=== PATIENT | female | born 1950 ===

== ENCOUNTER 2018-12-12 14:51 | Inpatient (IN) | payer MEDICARE ==
[~2018-12-12 14:51] MED LIST: ISOVUE-370 76%-LOCM 1 ML ONE
[2018-12-12 15:26] LABS: #Basophils 0.1 thou/uL (0.0-0.2); #Lymphocytes 1.5 thou/uL (1.20-3.40); #Monocytes 0.8 thou/uL (0.11-0.59); %Basophils 0.5 % (0.0-1.0); %Eosinophils 0.3 % (0.0-10.0); %Lymphocytes 14.7 % (21.0-51.0); %Monocytes 7.9 % (0.0-10.0); %Neutrophils 76.6 % (42.0-75.0); Hemoglobin 12.2 g/dL (12.0-16.0); Mean Corpuscular HGB CONC 32.3 g/dL (32.0-36.0); Mean Corpuscular Hemoglobin 26.5 pg (27.0-31.0); Mean Platelet Volume 7.6 fL (7.4-10.4); Platelet Count 388 thou/uL (130-400); RBC Distribution Width 14.1 % (11.5-14.5); Red Blood Cell (RBC) Count 4.58 mill/uL (4.20-5.40); White Blood Cell (WBC) Count 10.5 thou/uL (4.8-10.8)
[2018-12-12] MEDS ORDERED: hydrALAZINE 20 MG/ML VIAL ONE ×2 (15:27→17:48)
[2018-12-12 15:45] LABS: ALT (SGPT) 7 U/L (8-55); AST (SGOT) 12 U/L (5-34); Albumin 4.2 g/dL (3.4-4.8); Alkaline Phosphatase 83 U/L (40-150); Anion Gap 18 mmol/L (10-20); BUN (Urea Nitrogen) 17 mg/dL (9.8-20.1); Bilirubin, Total 0.3 mg/dL (0.2-1.2); Calc. Creatinine Clearance 0 mL/min (70-130); Carbon Dioxide 25 mmol/L (23-31); Chloride 97 mmol/L (98-107); Estimated GFR-MDRD 69; Globulin 2.9 g/dL (2.4-3.5); Glucose 106 mg/dL (80-115); Potassium 3.7 mmol/L (3.5-5.1); Protein, Total 7.1 g/dL (6.0-8.3); Sodium 136 mmol/L (136-145)
[2018-12-12] MEDS ORDERED: Lorazepam 2 MG/ML VIAL ONE ×2 (15:53→17:18)
[2018-12-12] MEDS ORDERED: Methocarbamol 1 GM in Sodium Chloride 0.9% 100 ML IVPB SCH (16:00)
[2018-12-12] MEDS ORDERED: diphenhydrAMINE 50 MG/ML VIAL ONE (16:42)
[2018-12-12] MEDS ORDERED: Famotidine/PF 20 mg/2ml Vial ONE (16:42)
[2018-12-12] MEDS ORDERED: Metoclopramide HCl 10 MG/2 ML VIAL ONE (16:42)
[2018-12-12] MEDS ORDERED: methylPREDNISolone Sod Succ/PF 125 MG/2 ML VIAL ONE (16:42)
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
[2018-12-12] MEDS ORDERED: Ketorolac Tromethamine 30 MG/ML VIAL ONE (18:22)
[2018-12-12 20:30] LABS: Troponin I 0.037 ng/mL (< 0.028)
[2018-12-12] MEDS ORDERED: Acetaminophen 325 MG TAB ONE (20:55)
[2018-12-12] MEDS ORDERED: Acetaminophen 650 MG Suppository PR PRN (22:23)
[2018-12-12] MEDS ORDERED: Ondansetron PF 4 MG/2 ML Vial IVP PRN (22:23)
[2018-12-12] MEDS ORDERED: Ondansetron ODT 4 MG TAB PO PRN (22:23)
[2018-12-12] MEDS ORDERED: hydrALAZINE 20 MG/ML VIAL SLOW IVP PRN (22:25)
--- NOTE | 2018-12-12 23:08 | HP ---
PRIMARY CARE DOCTOR: None reported. CODE STATUS: Full code. TIME OF EVALUATION: 10:30 p.m. CHIEF COMPLAINT: High blood pressure. HISTORY OF PRESENT ILLNESS: This is a 68-year-old female patient with past medical history of hypertension. The patient came to the hospital after having very high blood pressure with no clear triggers, no alleviating factors. She only reported that she has a lot of anxiety at home and the patient also had been taking off her blood pressure medications quite some time ago because her blood pressure had been controlled. Symptoms were severe, associated with chest pain that was 10/10, in the middle of the chest. The chest pain improved after the patient's blood pressure was controlled. REVIEW OF SYSTEMS: All other systems were reviewed and negative except for the findings mentioned above. PAST MEDICAL HISTORY: Positive for leaky mitral valve, diabetes type 2, hyperlipidemia, hypertension. PAST SURGICAL HISTORY: Left knee surgery. PSYCHIATRIC HISTORY: Depression. SOCIAL HISTORY: No alcohol, no drugs, no smoking history. KNOWN ALLERGIES: To iodine. FAMILY HISTORY:Reviewed and non contributory to current presentation. REPORTED MEDICATIONS: Tylenol. PHYSICAL EXAMINATION: VITAL SIGNS: On presentation, blood pressure 213/96, heart rate 73, respiratory rate was 20, temperature 98.1, pain 10/10, oxygen saturation was 97% on room air. GENERAL APPEARANCE: The patient is alert, oriented, no acute distress. HEENT: Eyes, normal conjunctivae. Moist oral mucosa. Anicteric. No JVD. RESPIRATORY: Bilateral air entry. Breath sounds are normal. CARDIOVASCULAR: Normal rate, regular rhythm. No murmurs. No gallop. No edema. ABDOMEN: Soft, normal bowel sounds. MUSCULOSKELETAL: Baseline range of motion and strength. SKIN: Warm, intact. No pallor. No rash. No redness. Capillary refill seems to be intact. NEURO: No evidence of any new focal weakness. Cranial nerves seem to be intact. PSYCH: The patient is in good mood. No anxiety. Optimal judgment. IMAGING: EKG was reviewed. The patient has normal sinus rhythm with a rate of 62, NM 118, QRS 90, QT corrected 436. LABORATORY DATA: Reviewed. The patient has white count 10.5, hemoglobin 12.2, MCV 82, platelet count 388. Chemistry; sodium 136, potassium 3.7, chloride 97, carbon dioxide 25, anion gap of 18, BUN 17, creatinine 0.82, GFR 69, glucose 106, calcium 11, total bilirubin 0.3. LFTs were negative. First troponin 0.020, second troponin 0.037. ASSESSMENT AND PLAN: The patient will be placed in the hospital with following medical problems. 1. Hypertensive urgency. The patient presented with very high blood pressure with some chest pain. No significant myocardial damage or any other organ damage. The patient has been given medication. Blood pressure is better controlled now. The patient is asymptomatic at bedside. We will continue to restart her on blood pressure medication with some p.r.n. medications for optimal control and then we will monitor overnight. chest pain was secondary to high blood pressure. 2. Controlled diabetes which was 106. We will reconcile home medications. Low carb diet is recommended. 3. Thickening of the duodenal mucosa. This is seen on the CAT scan of the abdomen. This will need to be followed, might need GI evaluation. This could be considered as outpatient if arranged. 4. Hyperlipidemia. Low-cholesterol diet is advised. Reconcile home medications. 5. Deep venous thrombosis prophylaxis. Job ID: [id number] ROCK
[2018-12-12 23:37] LABS: Troponin I 0.062 ng/mL (< 0.028)
[2018-12-13 01:22] VITALS: BMI 26.8
[2018-12-13] MEDS ORDERED: hydrALAZINE 20 MG/ML VIAL SLOW IVP PRN (04:13)
[2018-12-13 06:10] LABS: #Lymphocytes 0.8 thou/uL (1.20-3.40); #Monocytes 0.6 thou/uL (0.11-0.59); #Neutrophils 9.1 thou/uL (1.40-6.50); %Eosinophils 0.2 % (0.0-10.0); %Lymphocytes 7.8 % (21.0-51.0); %Monocytes 5.9 % (0.0-10.0); %Neutrophils 86.1 % (42.0-75.0); Hemoglobin 11.9 g/dL (12.0-16.0); Mean Corpuscular Hemoglobin 28.1 pg (27.0-31.0); Mean Corpuscular Volume 82.7 fL (78.0-98.0); Mean Platelet Volume 7.7 fL (7.4-10.4); Platelet Count 407 thou/uL (130-400); RBC Distribution Width 14.3 % (11.5-14.5); Red Blood Cell (RBC) Count 4.25 mill/uL (4.20-5.40); White Blood Cell (WBC) Count 10.5 thou/uL (4.8-10.8)
[2018-12-13 06:28] LABS: Anion Gap 15 mmol/L (10-20); BUN (Urea Nitrogen) 19 mg/dL (9.8-20.1); Calc. Creatinine Clearance 74 mL/min (70-130); Calcium 10.3 mg/dL (7.8-10.44); Carbon Dioxide 24 mmol/L (23-31); Chloride 100 mmol/L (98-107); Estimated GFR-MDRD 65; Glucose 210 mg/dL (80-115); Potassium 3.6 mmol/L (3.5-5.1); Sodium 135 mmol/L (136-145)
[2018-12-13] MEDS: Carvedilol 3.125 MG TAB PO SCH ×2 (08:41→17:05)
[2018-12-13] MEDS: Enoxaparin Sodium 40 MG/0.4 ML SYRINGE SC SCH (08:42)
[2018-12-13] MEDS: Lisinopril 10 MG TAB PO SCH (08:42)
[2018-12-13] MEDS ORDERED: Prevnar 13-Val Conj/PF 0.5 ML SYRINGE IM ONE (09:00)
[2018-12-13] MEDS ORDERED: Metoclopramide HCl 10 MG/2 ML VIAL IVP PRN (09:04)
--- NOTE | 2018-12-13 09:18 | PDOC.HOSPP ---
- Subjective Encounter Date: 12/13/18 Encounter Time: 09:16 Subjective: Patient lying in bed, she complains of epigastric pain and nausea. BP remains elevated, but she just received her morning meds such as carvedilol and lisinopril. She denies chest pain, shortness of breath. She reports used to take losartan-HCTZ but was taken off of this by PCP due to BP improved. - Objective Vital Signs & Weight: Vital Signs (12 hours) Temp Pulse Resp BP BP Pulse Ox 12/13/18 08:42 218/90 H 12/13/18 07:59 97.9 F 93 20 218/90 H 99 12/13/18 07:15 213/93 H 12/13/18 04:49 205/84 H 12/13/18 04:09 78 212/91 H 12/13/18 03:52 98.6 F 75 18 212/91 H 98 12/13/18 01:00 97.8 F 72 16 168/72 H 97 Weight Weight 166 lb 4.8 oz I&O: 12/12/18 12/13/18 12/14/18 06:59 06:59 06:59 Intake Total 240 Balance 240 Result Diagrams: 12/13/18 05:49 12/13/18 05:49 Radiology Reviewed by me: Yes ROS - Review of Systems Constitutional: denies: fever, chills Eyes: denies: vision change ENT: denies: nose discharge, nose congestion, throat pain Respiratory: denies: cough, dry, shortness of breath Cardiovascular: denies: chest pain, palpitations Gastrointestinal: reports: nausea, abdominal pain. denies: vomitting, constipation Musculoskeletal: denies: shoulder pain, back pain, leg pain Skin: denies: rash, lesions Neurological: denies: weakness, numbness, change in speech All other systems reviewed; all pertinent +/- noted in HPI/Subj - Medication Medications: Active Medications Generic Name Dose Route Start Last Admin Trade Name Freq PRN Reason Stop Dose Admin Carvedilol 3.125 mg 12/13/18 08:00 12/13/18 08:41 Coreg PO 3.125 mg BID-WM FAUZIA Administration Enoxaparin Sodium 40 mg 12/13/18 09:00 12/13/18 08:42 Lovenox SC 40 mg 0900 FAUZIA Administration Lisinopril 10 mg 12/13/18 09:00 12/13/18 08:42 Zestril PO 10 mg DAILY FAUZIA Administration Ondansetron HCl 4 mg 12/12/18 22:23 12/13/18 04:49 Zofran Odt PO 4 mg Q6H PRN Administration Nausea/Vomiting - Exam NAD, awake alert Eye: PERRL ENT: normocephalic atraumatic, moist mucosa Neck: supple, no thyromegaly Heart: RRR, murmur present Respiratory: CTAB, no wheezes Gastrointestinal: soft, normal bowel sounds, tender to palpation Extremities: no cyanosis, no clubbing, no edema Skin: normal turgor Neurological: CN's grossly intact, no focal deficits Musculoskeletal: normal tone, no muscle wasting Psychiatric: normal affect, A&O x 3 Hosp A/P (1) HTN (hypertension) Code(s): I10 - ESSENTIAL (PRIMARY) HYPERTENSION Status: Acute (2) Controlled diabetes mellitus Code(s): E11.9 - TYPE 2 DIABETES MELLITUS WITHOUT COMPLICATIONS Status: Acute (3) Gastric wall thickening Code(s): K31.89 - OTHER DISEASES OF STOMACH AND DUODENUM Status: Acute - Plan GI proph Add PPI, IV reglan for symptomatic control GI consult placed for CT findings of wall thickening of stomach and duodenum Continue carvedilol and lisinopril for BP along with IV PRN for breakthrough Monitor BP and other vitals closely
[2018-12-13 10:57] LABS: Troponin I 0.123 ng/mL (< 0.028)
[2018-12-13] MEDS: Pantoprazole 40 MG VIAL IVP SCH ×2 (11:29→21:04)
[2018-12-13 12:59] LABS: Troponin I 0.122 ng/mL (< 0.028)
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
[2018-12-13] MEDS: ALPRAZolam 0.25 MG TAB PO SCH (21:02)
[2018-12-14] MEDS: Acetaminophen 325 MG TAB PO PRN ×2 (00:58→21:15)
--- NOTE | 2018-12-14 08:09 | CON ---
DATE OF CONSULTATION: 12/13/2018 REASON FOR CONSULTATION: Abdominal pain, nausea, abnormal CAT scan. HISTORY OF PRESENT ILLNESS: Ms. Vanita Harvey is a very pleasant 68-year-old female, hospitalized through the ER yesterday because of anxiety and markedly elevated blood pressure. The patient usually lives in [place]. Apparently, her mother had a stroke in August of 2018 and she is here being in town over the last 3 months. The patient had a lot of stress lately. She appears very nervous and anxious and somewhat worried. The patient actually came to the ER for her acute anxiety and elevated blood pressure. Her blood pressure is controlled today. The patient had abdominal CAT scan done yesterday for aortic dissection. The CAT scan showed thickening of the distal stomach wall and also duodenum. The patient does complain of abdominal pain, somewhat very mild and very vague. The pain is over the epigastric area and also over the left colon area. She was found to have mild nausea with the pain. She had no similar episodes in the past. The patient did state depression in the and was on Prozac for a while. She stopped Prozac many years ago. She feels that she is depressed and anxious because of what is going on in her life. Her is 86-year-old and he has also multiple medical problems. Her bowel movements are regular. No history of hematochezia or any melena. No past history of peptic ulcer. The patient had not seen a doctor in a while. She never had a colonoscopy for cancer screening. She has no relevant history. ALLERGIES: PENICILLIN AND IV CONTRAST. SOCIAL HISTORY: The patient is . She does not smoke or drink alcohol. MEDICAL ILLNESSES: 1. Hypertension. 2. History of depression in the past, on Prozac. There is also history of mitral valve prolapse, hyperlipidemia, type 2 diabetes. SURGERIES: 1. She has had a left knee replacement. 2. 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 No other surgeries. FAMILY HISTORY: Mother with hypertension, she has two strokes and most recent one in August of 2018. Father with hypertension, COPD. PSYCHIATRIC HISTORY: History of depression many years ago and was on Prozac for a while. REVIEW OF SYSTEMS: A 10-point system reviewed; CONSTITUTIONAL: No history of fever. No weight loss. No history of any fatigue or tiredness. HEENT: No chronic headache. No syncope. No impaired vision. No diplopia. No hearing loss. No nose bleed. No sore throat. LUNGS: No chronic coughing, hemoptysis, or dyspnea. CARDIOVASCULAR: No chest pain. No palpitation. No dyspnea, orthopnea, or PND. GI: Abdominal pain with mild nausea. No hematochezia. No melena. : No dysuria or hematuria. NEUROPSYCHIATRY: History of anxiety and depression. PHYSICAL EXAMINATION: GENERAL: Appears anxious and also seems clinically depressed. VITAL SIGNS: Today, temperature 99 degrees Fahrenheit, pulse 71, blood pressure 133/62. HEENT: Conjunctivae are clear. NECK: Supple. No adenitis or thyromegaly noted. CARDIOVASCULAR: First and second heart sounds are normal. LUNGS: Clear to auscultation. ABDOMEN: Soft. Abdomen is mildly tender over the epigastric area. There is no rebound or guarding. Overall, the exam is very benign. EXTREMITIES: Reveal no edema. LABORATORY DATA: From today WBC 10,500, hemoglobin 11.9, hematocrit 35.1, MCV 82.7, platelet count 407,000 polymorphs 86, lymphocytes 7, monocytes 5. Chemistry panel; lytes are normal, BUN is 19, creatinine 0.87, glucose 210, calcium 10.3. Troponin 0.122. Cortisol 4.90. TSH 1.578. Abdominal CAT scan done for aortic dissection shows some thickening of the gastric wall and duodenum. CLINICAL IMPRESSION: 1. A 68-year-old female with acute anxiety with markedly elevated blood pressure. Her symptoms are very vague and I believe most of her symptoms are due to anxiety and depression. 2. Hypertension. 3. Previous for benign tumor many years ago. 4. Left knee replacement. 5. Mitral valve prolapse. RECOMMENDATIONS: 1. EGD tomorrow. I did talk to Ms. Harvey and explained the procedure in detail. 2. Consider starting the patient on Lexapro or possibly Xanax at a small dose. Job ID: [id number]
[2018-12-14] MEDS: ALPRAZolam 0.25 MG TAB PO SCH ×2 (12:04→21:15)
[2018-12-14] MEDS: Pantoprazole 40 MG VIAL IVP SCH ×2 (12:05→21:20)
[2018-12-14] MEDS: NIFEdipine XL 30 MG TAB PO SCH ×2 (12:05→19:11)
[2018-12-14] MEDS: Lisinopril 10 MG TAB PO SCH ×2 (12:05→19:11)
[2018-12-14] MEDS: Enoxaparin Sodium 40 MG/0.4 ML SYRINGE SC SCH (12:05)
--- NOTE | 2018-12-14 12:22 | NM ---
CARDIAC SPECT: CLINICAL HISTORY: 68-year-old female with chest pain, hypertension, dyslipidemia, and diabetes. TECHNIQUE: A myocardial perfusion scan was performed using the single isotope one day protocol with technetium-9 9m sestamibi. 11 mCi were injected intravenously for the rest exam followed by 32 mCi for the stress exam. Pharmacologic stress with Adenosine was monitored and interpreted by Dr. Ridley. FINDINGS: Fairly homogeneous tracer distribution is seen in the myocardial segments on stress and rest images w ithout fixed or reversible defects. GATED SPECT LVEF: 68%. WALL MOTION EXAM: Normal. IMPRESSION: Normal myocardial perfusion scan. POS: TPC
[2018-12-14] MEDS ORDERED: PROPOFOL 200 MG/20 ML VIAL ONE (13:11)
[2018-12-14] MEDS ORDERED: ADENOSINE 60 MG/20 ML VIAL ONE (13:30)
--- NOTE | 2018-12-14 16:39 | PDOC.HOSPP ---
- Subjective Encounter Date: 12/14/18 Encounter Time: 16:35 Subjective: Patient lying in bed, she reports feeling better. She denies any events over night, she had a normal stress test and will go for EGD later. She denies chest pain, shortness of breath or n/v/d. - Objective Vital Signs & Weight: Vital Signs (12 hours) Temp Pulse Resp BP BP Pulse Ox 12/14/18 12:05 47 L 131/60 12/14/18 11:50 98.3 F 51 L 16 161/69 H 98 12/14/18 07:44 98.1 F 47 L 16 133/59 L 96 12/14/18 06:22 56 L 18 131/60 98 Weight Admit Weight 166 lb Weight 166 lb 4.8 oz I&O: 12/13/18 12/14/18 12/15/18 06:59 06:59 06:59 Intake Total 240 Balance 240 Result Diagrams: 12/13/18 05:49 12/13/18 05:49 Radiology Reviewed by me: Yes ROS - Review of Systems Constitutional: denies: fever, chills Eyes: denies: vision change ENT: denies: nose congestion, throat swelling Respiratory: denies: cough, shortness of breath, wheezing Cardiovascular: denies: chest pain, palpitations, edema Gastrointestinal: denies: nausea, vomitting, abdominal pain Musculoskeletal: denies: neck pain, shoulder pain Skin: denies: rash, bruising Neurological: denies: weakness, change in speech, confusion All other systems reviewed; all pertinent +/- noted in HPI/Subj - Medication Medications: Active Medications Generic Name Dose Route Start Last Admin Trade Name Kai PRN Reason Stop Dose Admin Acetaminophen 650 mg 12/12/18 22:23 12/14/18 00:58 Tylenol PO 650 mg Q4H PRN Administration Headache/Fever/Mild Pain (1-3) Alprazolam 0.25 mg 12/13/18 21:00 12/14/18 12:04 Xanax PO Not Given BID [facility] Enoxaparin Sodium 40 mg 12/13/18 09:00 12/14/18 12:05 Lovenox SC Not Given 0900 FAUZIA Lisinopril 10 mg 12/13/18 09:00 12/14/18 12:05 Zestril PO Not Given DAILY FAUZIA Metoclopramide HCl 10 mg 12/13/18 09:04 12/13/18 11:29 Reglan IVP 10 mg Q6H PRN Administration Nausea/Vomiting Nifedipine 30 mg 12/14/18 09:00 12/14/18 12:05 Procardia Xl PO Not Given DAILY FAUZIA Ondansetron HCl 4 mg 12/12/18 22:23 12/13/18 04:49 Zofran Odt PO 4 mg Q6H PRN Administration Nausea/Vomiting Pantoprazole Sodium 40 mg 12/13/18 09:00 12/14/18 12:05 Protonix IVP Not Given Q12HR [facility] Sodium Chloride 10 ml 12/13/18 21:00 12/14/18 12:05 Flush - Normal Saline IVF Not Given Q12HR FAUZIA - Exam NAD, awake alert Eye: PERRL ENT: normocephalic atraumatic, no oropharyngeal lesions, moist mucosa Neck: supple, no JVD Heart: RRR, no murmur Respiratory: CTAB, no wheezes Gastrointestinal: soft, non-tender, normal bowel sounds Extremities: no cyanosis, no edema Skin: normal turgor Neurological: CN's grossly intact, no weakness, no new deficit Musculoskeletal: normal tone, no muscle wasting Psychiatric: normal affect, A&O x 3 Hosp A/P (1) HTN (hypertension) Code(s): I10 - ESSENTIAL (PRIMARY) HYPERTENSION Status: Acute (2) Controlled diabetes mellitus Code(s): E11.9 - TYPE 2 DIABETES MELLITUS WITHOUT COMPLICATIONS Status: Acute (3) Gastric wall thickening Code(s): K31.89 - OTHER DISEASES OF STOMACH AND DUODENUM Status: Acute - Plan GI proph Continue PPI, IV reglan for symptomatic control. Patient clinically improved Stress test normal without signs of ischemia GI following and plan for EGD today Continue carvedilol and lisinopril for BP along with IV PRN for breakthrough, BP improved Monitor BP and other vitals closely
[2018-12-15 05:58] LABS: #Eosinphils 0.2 thou/uL (0.0-0.7); #Monocytes 0.7 thou/uL (0.11-0.59); #Neutrophils 4.4 thou/uL (1.40-6.50); %Basophils 0.4 % (0.0-1.0); %Eosinophils 2.3 % (0.0-10.0); %Lymphocytes 27.3 % (21.0-51.0); %Monocytes 9.8 % (0.0-10.0); %Neutrophils 60.2 % (42.0-75.0); Hemoglobin 10.7 g/dL (12.0-16.0); Mean Corpuscular HGB CONC 31.9 g/dL (32.0-36.0); Mean Corpuscular Hemoglobin 27.3 pg (27.0-31.0); Mean Corpuscular Volume 85.5 fL (78.0-98.0); Mean Platelet Volume 7.8 fL (7.4-10.4); Platelet Count 323 thou/uL (130-400); RBC Distribution Width 14.4 % (11.5-14.5); Red Blood Cell (RBC) Count 3.91 mill/uL (4.20-5.40); White Blood Cell (WBC) Count 7.3 thou/uL (4.8-10.8)
[2018-12-15] MEDS: Acetaminophen 325 MG TAB PO PRN ×4 (06:16→21:59)
[2018-12-15] MEDS: ALPRAZolam 0.25 MG TAB PO SCH ×2 (08:10→20:41)
[2018-12-15] MEDS: Lisinopril 10 MG TAB PO SCH (08:10)
[2018-12-15] MEDS: Pantoprazole 40 MG VIAL IVP SCH ×2 (08:10→20:41)
[2018-12-15] MEDS: NIFEdipine XL 30 MG TAB PO SCH (08:10)
[2018-12-15] MEDS: Enoxaparin Sodium 40 MG/0.4 ML SYRINGE SC SCH (08:11)
--- NOTE | 2018-12-15 09:03 | OP ---
DATE OF PROCEDURE: 12/14/2018 PROCEDURE PERFORMED: Esophagogastroduodenoscopy with biopsy. PREOPERATIVE DIAGNOSES: Abnormal CAT scan, prominent wall thickening in the distal stomach and proximal duodenum without adenopathy. POSTOPERATIVE DIAGNOSES: 1. Large ulcer at the region of the pylorus anatomy, is very distorted, and it is unclear if this is antral or superior duodenal bulb. Multiple biopsies obtained from the ulcer. Multiple biopsies were obtained from the antrum. 2. Partial gastric outlet obstruction from the edema related to this at the level of the duodenum, presumably apex. RECOMMENDATIONS: 1. IV Protonix drip. 2. Clear liquid diet. 3. Await biopsies. ANESTHESIA: TIVA. PROCEDURE IN DETAIL: The patient was informed of the risks, benefits, and possible complications of endoscopy including perforation, reaction to medication, and aspiration, informed consent was obtained. The patient was brought to endoscopy suite, where she was sedated in a gradual fashion. Once she was comfortable, bite block was placed inside the orifice. The endoscope was advanced to the esophagus, stomach, and second and third portions of the duodenum. The esophagus was normal. Stomach was entered and found to have retained gastric contents. A full fundus could not be evaluated at the antrum. There was gross extrinsic compression and mass-effect at the superior-posterior aspect of the pyloric channel and pre-pyloric antrum. Entering this area, there was a large ulcer in the duodenal bulb measuring probably 3 to 4 cm across and engaging the entire superior aspect of the duodenal bulb from about the 10 o'clock to about the 4 o'clock position. The apex of duodenal wall was distorted. I was able to get the scope beyond this into the second and third portions of duodenum, which appeared normal. There was quite a bit of edema there. There was no active hemorrhage. I could not rule out microperforation of the depth of this ulcer. There was lot of food in the base of it. Biopsies were taken from the margins of the ulcer and also from the antrum and submitted to Pathology. The scope was removed. A full retroflexion was not performed in light of the retained gastric contents. She will need a followup endoscopy in probably a few months. RECOMMENDATIONS: As above. Job ID: [id number]
--- NOTE | 2018-12-15 13:53 | PDOC.HOSPP ---
- Subjective Encounter Date: 12/15/18 Encounter Time: 13:51 Subjective: Pt seen and examined, no new issues - Objective Vital Signs & Weight: Vital Signs (12 hours) Temp Pulse Resp BP Pulse Ox 12/15/18 11:58 97.4 F L 12/15/18 08:10 80 12/15/18 07:49 97.5 F L 46 L 20 148/67 H 99 12/15/18 04:00 98.2 F 80 16 149/68 H 95 Weight Admit Weight 166 lb Weight 166 lb Result Diagrams: 12/15/18 05:31 12/13/18 05:49 ROS - Medication Medications: Active Medications Generic Name Dose Route Start Last Admin Trade Name Freq PRN Reason Stop Dose Admin Acetaminophen 650 mg 12/12/18 22:23 12/15/18 12:52 Tylenol PO 650 mg Q4H PRN Administration Headache/Fever/Mild Pain (1-3) Alprazolam 0.25 mg 12/13/18 21:00 12/15/18 08:10 Xanax PO 0.25 mg BID FAUZIA Administration Enoxaparin Sodium 40 mg 12/13/18 09:00 12/15/18 08:11 Lovenox SC 40 mg 0900 FAUZIA Administration Lisinopril 10 mg 12/13/18 09:00 12/15/18 08:10 Zestril PO 10 mg DAILY FAUZIA Administration Metoclopramide HCl 10 mg 12/13/18 09:04 12/13/18 11:29 Reglan IVP 10 mg Q6H PRN Administration Nausea/Vomiting Nifedipine 30 mg 12/14/18 09:00 12/15/18 08:10 Procardia Xl PO 30 mg DAILY FAUZIA Administration Ondansetron HCl 4 mg 12/12/18 22:23 12/13/18 04:49 Zofran Odt PO 4 mg Q6H PRN Administration Nausea/Vomiting Pantoprazole Sodium 40 mg 12/13/18 09:00 12/15/18 08:10 Protonix IVP 40 mg Q12HR FAUZIA Administration Sodium Chloride 10 ml 12/13/18 21:00 12/15/18 08:14 Flush - Normal Saline IVF 10 ml Q12HR FAUZIA Administration - Exam NAD, awake alert Eye: PERRL, anicteric sclera ENT: normocephalic atraumatic, no oropharyngeal lesions Neck: supple, symmetric, no JVD Heart: RRR, no murmur, no gallops Respiratory: CTAB, no wheezes, no rales Gastrointestinal: soft, non-tender, non-distended Extremities: no cyanosis, no clubbing, no edema Skin: normal turgor, no lesions, no rashes Neurological: CN's grossly intact, normal sensation to touch Musculoskeletal: normal tone, normal strength Hosp A/P (1) Chest pain Code(s): R07.9 - CHEST PAIN, UNSPECIFIED Status: Acute (2) Controlled diabetes mellitus Code(s): E11.9 - TYPE 2 DIABETES MELLITUS WITHOUT COMPLICATIONS Status: Acute (3) Gastric wall thickening Code(s): K31.89 - OTHER DISEASES OF STOMACH AND DUODENUM Status: Acute (4) HTN (hypertension) Code(s): I10 - ESSENTIAL (PRIMARY) HYPERTENSION Status: Acute - Plan - cbc in am - bmp in am - cont PPI - egd report pending - dc plans in am if labs acceptable and if ok with GI and Cardio - plan d/w pt, she understankds and agrees with this plan
--- NOTE | 2018-12-15 16:36 | PRG ---
DATE OF SERVICE: 12/15/2018 SUBJECTIVE: Ms. Harvey is currently in the shower. She was found have a large ulcer of her digestive system. She has undergone biopsies. Her blood pressure is improved. The patient had a negative stress test. ASSESSMENT: 1. Hypertension, improved. 2. Ulcer with some apparent gastrointestinal blood loss. PLAN: Continue current medical regimen. She is currently on Procardia XL and lisinopril. She is taken off carvedilol due to bradycardia. I would be glad to see her in the office as an outpatient if she would like help with her blood pressure. Dr. Rapp available this weekend if needed. Job ID: [id number]
--- NOTE | 2018-12-16 00:24 | PRG ---
DATE OF SERVICE: 12/15/2018 SUBJECTIVE: Ms. Harvey has eaten regular food today without problems. No nausea, vomiting, or pain. OBJECTIVE: VITAL SIGNS: Temperature is 97.4, pulse 60, and blood pressure /57. GENERAL: She is alert and oriented to person, place, and time. ABDOMEN: Soft and nontender. LABORATORY DATA: White count 7.3, hemoglobin 10.7, and platelet count 323. DATA REVIEWED: Pathology from gastric biopsy is pending, ASSESSMENT: Duodenal ulcer, large. No stigmata of bleeding at this time. RECOMMENDATIONS: If she is going to go home, she can go home on a p.o. PPI b.i.d., either Protonix 40 mg b.i.d. or omeprazole 40 mg b.i.d. She asked about Prevacid over the counter. I told her she could take two of those of 30 mg b.i.d. for 2 weeks and then 30 of Prevacid, 40 of Prilosec or 40 of Protonix once daily after that. She can follow up in our office in 2 weeks. We will follow along with her as long she is in the hospital. Job ID: [id number]
[2018-12-16 05:26] LABS: #Eosinphils 0.3 thou/uL (0.0-0.7); #Lymphocytes 1.8 thou/uL (1.20-3.40); #Monocytes 0.6 thou/uL (0.11-0.59); #Neutrophils 3.2 thou/uL (1.40-6.50); %Basophils 0.5 % (0.0-1.0); %Eosinophils 4.5 % (0.0-10.0); %Lymphocytes 30.8 % (21.0-51.0); %Monocytes 10.4 % (0.0-10.0); %Neutrophils 53.8 % (42.0-75.0); Hemoglobin 10.8 g/dL (12.0-16.0); Mean Corpuscular HGB CONC 32.9 g/dL (32.0-36.0); Mean Corpuscular Volume 85.2 fL (78.0-98.0); Mean Platelet Volume 7.8 fL (7.4-10.4); Platelet Count 342 thou/uL (130-400); RBC Distribution Width 14.1 % (11.5-14.5); Red Blood Cell (RBC) Count 3.86 mill/uL (4.20-5.40); White Blood Cell (WBC) Count 5.9 thou/uL (4.8-10.8)
[2018-12-16 05:44] LABS: Anion Gap 12 mmol/L (10-20); BUN (Urea Nitrogen) 8 mg/dL (9.8-20.1); Calc. Creatinine Clearance 91 mL/min (70-130); Calcium 8.9 mg/dL (7.8-10.44); Carbon Dioxide 25 mmol/L (23-31); Chloride 105 mmol/L (98-107); Estimated GFR-MDRD 83; Glucose 111 mg/dL (80-115); Potassium 3.5 mmol/L (3.5-5.1); Sodium 138 mmol/L (136-145)
[2018-12-16] MEDS: ALPRAZolam 0.25 MG TAB PO SCH (09:24)
[2018-12-16] MEDS: Lisinopril 10 MG TAB PO SCH (09:24)
[2018-12-16] MEDS: NIFEdipine XL 30 MG TAB PO SCH (09:24)
[2018-12-16] MEDS: Pantoprazole 40 MG VIAL IVP SCH (09:25)
[2018-12-16] MEDS: Acetaminophen 325 MG TAB PO PRN (11:21)
[2018-12-16 12:22] VITALS: TEMP 98
[2018-12-16 13:44] VITALS: BP 151/70
--- NOTE | 2018-12-16 14:57 | PDOC.EVN ---
Event Note - Event Note Event Note: DC SUMMARY #[id number]
--- NOTE | 2018-12-16 15:02 | EKG ---
Test Reason : Blood Pressure : / mmHG Vent. Rate : 062 BPM Atrial Rate : 062 BPM P-R Int : 118 ms QRS Dur : 090 ms QT Int : 430 ms P-R-T Axes : 052 -11 039 degrees QTc Int : 436 ms Normal sinus rhythm Moderate voltage criteria for LVH, may be normal variant Borderline ECG Confirmed by LIGIA MENA ([id number]), editor in chief newspaper [employer] ([id number]) on 12/16/2018 3:01:54 PM Referred By: TANK Confirmed By:LIGIA MENA
--- NOTE | 2018-12-16 19:16 | DIS ---
DATE OF ADMISSION: 12/12/2018 DATE OF DISCHARGE: 12/16/2018 ADMITTING DIAGNOSES: Hypertensive urgency, chest pain, duodenal ulcer. DISCHARGE DIAGNOSES: Hypertensive urgency, resolved. Chest pain, stable. Duodenal ulcer, stable. HOSPITAL COURSE: This is a 68-year-old female, admitted to Internal Medicine Team, was also followed very closely by Cardiology and Gastroenterology. The patient was ruled out of NM with negative enzymes. The patient had EGD done during her stay here due to abdominal pain and was found to have a large ulcer as well as partial gastric outlet syndrome noted with edema around the area of the duodenum. The patient was started on PPI IV, transitioned from drip to IV q.12. The patient was given Protonix 40 p.o. q.12 hours. At the point of time of discharge, denies any nausea, vomiting, diarrhea, constipation, chest pain, fevers, chills, or shortness of breath. The patient also had an echocardiogram performed, was cleared from a cardiac and medical perspective. On echo, the patient's ejection fraction was 50% to 55% as well as no significant other abnormalities were noted. The patient was to follow up with PCP, Cardiology, and GI within 1 to 2 weeks the patient's condition at point in time of discharge was stable. Case and plan discussed with the patient at length. She understood and agreed to this plan. DISPOSITION: Home. Follow up with PCP within 1 to 2 weeks. MEDICATIONS: See MAR. ACTIVITY: As tolerated with assistance as needed. DIET: Low-fat, low-calorie, high-fiber diet. CONDITION: Stable. PROGNOSIS: Good. Once again, case and plan discussed with the patient at length. She understood and agreed with this plan. Job ID: [id number]
== END 2018-12-16 14:53 | disposition home or self-care (01) | DRG 304 ==
LOC: ERS 14:51 → 2SW 19:16 → OBSVTOIN 19:16 → 2SW 12-13 00:50
PROVIDERS: ADMIT Internal Medicine; ATTEND Internal Medicine
PROC: 0DB68ZX Excision of Stomach, Via Natural or Artificial Opening Endoscopic, Diagnostic (ICD-10-PCS; principal; 2018-12-14)
PROC: 0DB98ZX Excision of Duodenum, Via Natural or Artificial Opening Endoscopic, Diagnostic (ICD-10-PCS; 2018-12-14)
DX: I16.0 Hypertensive urgency (principal); K26.4 Chronic or unspecified duodenal ulcer with hemorrhage; K31.1 Adult hypertrophic pyloric stenosis; E11.9 Type 2 diabetes mellitus without complications; E78.5 Hyperlipidemia, unspecified; K31.89 Other diseases of stomach and duodenum; F32.9 Major depressive disorder, single episode, unspecified; F41.9 Anxiety disorder, unspecified; Z96.652 Presence of left artificial knee joint; R07.9 Chest pain, unspecified; Z91.041 Radiographic dye allergy status; Z88.0 Allergy status to penicillin
CPT/HCPCS: 36415; 36416; 71275; 78452; 80048; 80053; 82533; 82550; 84443; 84484; 85025; 88305; 88312; 90471; 90670; 93005; 93017; 93306; 96365; 96367; 96372; 96375; 96376; A9500; C9113; G0009; J0153; J0360; J0500; J1200; J1650; J1885; J2060; J2704; J2765; J2800; J2930; J3490; Q0162; Q9966; S0028